=== PATIENT | male | born 1940 | race Asian ===

== ENCOUNTER → 2024-01-27 09:50 | Outpatient (REF) | payer OTHER, SELFPAY | LOC: RAD 09:50 | PROVIDERS: ATTENDING PHYSICIAN Internal Medicine | DX: R74.01 Elevation of levels of liver transaminase levels (principal) | CPT/HCPCS: 76700 ==

== ENCOUNTER → 2024-03-29 06:30 | Day surgery (SDC) | payer OTHER, SELFPAY ==
[2024-03-29 10:40] LABS: Glucose - Point of Care 160 mg/dl (70-99)
== END ==
LOC: GI 06:30
PROVIDERS: ATTENDING PHYSICIAN Internal Medicine Gastroenterology
DX: D50.9 Iron deficiency anemia, unspecified (principal); R19.5 Other fecal abnormalities; K64.8 Other hemorrhoids; Q43.8 Other specified congenital malformations of intestine; D49.0 Neoplasm of unspecified behavior of digestive system; D12.2 Benign neoplasm of ascending colon; D12.3 Benign neoplasm of transverse colon; K22.2 Esophageal obstruction; K44.9 Diaphragmatic hernia without obstruction or gangrene; K29.50 Unspecified chronic gastritis without bleeding
CPT/HCPCS: 45385; 45380; 43239; 88305; 82962; 88342

== ENCOUNTER 2024-04-07 19:35 | Inpatient (IN) | payer OTHER, SELFPAY ==
[2024-04-07] VITALS (34 sets, daily range): BP systolic 95–140; BP diastolic 49–66; BMI 20.5; BMI 20.9
[2024-04-07 12:54] LABS: % Basophils 0.6 % (0-2); % Eosinophils 1.5 % (0-6); % Immature Granulocytes 0.4 % (0-0.5); % Lymphocytes 24.5 % (20.5-51.1); % Monocytes 7.9 % (1.7-9.3); % Neutrophils 65.1 % (42.2-75.2); Absolute Eosinophils 0.1 10^3/uL (0-0.7); Absolute Lymphocytes 1.3 10^3/uL (1.2-3.4); Absolute Monocytes 0.4 10^3/uL (0.1-0.6); Absolute Neutrophils 3.5 10^3/uL (1.4-6.5); Hematocrit 22.1 % (39.0-52.0); Hemoglobin 7.5 g/dL (13.0-18.0); Mean Corp Hgb Conc. 33.9 g/dL (33.0-37.0); Mean Corpuscular Hgb 28.8 pg (27.0-31.0); Mean Platelet Volume 8.4 fL (7.4-10.4); Nucleated Red Blood Cells % 0 % (-); Platelet Count 312 10^3/uL (130-400); Red Cell Dist. Width 14.5 % (11.5-14.5); White Blood Cell Count 5.4 10^3/uL (4.8-10.8)
[2024-04-07 13:06] LABS: ALT (SGPT) 20 U/L (0-50); AST (SGOT) 32 U/L (17-59); Albumin 3.7 g/dl (3.5-5.0); Alkaline Phosphatase 78 U/L (38-126); Blood Urea Nitrogen 36 mg/dl (9-20); Calcium 9.2 mg/dl (8.4-10.2); Carbon Dioxide 25 mmol/L (22-30); Chloride 105 mmol/L (98-107); Glucose 166 mg/dl (70-99); Potassium 4.7 mmol/L (3.5-5.1); Sodium 137 mmol/L (135-145); Total Bilirubin 0.3 mg/dl (0.2-1.3); Total Protein 6.2 g/dl (6.3-8.2); eGFR 34.14
--- NOTE | 2024-04-07 15:38 | ED.GENMED ---
History of Present Illness
General
Chief Complaint: Rectal Bleeding
Source: patient and family (Daughter)
Exam Limitations: none
Time Seen by Provider: 04/07/24 14:19
Nursing documentation reviewed up to this point in time: agreed with
Travel History
Have you had any contact with someone who has COVID-19?: No
Do you have any symptoms of coronavirus? Fever > 100 degrees, chills, cough, shortness of breath, sore throat, loss of taste or smell, muscle aches, or headache?: No
History of Present Illness
History of Present Illness:
The patient is a pleasant 83-year-old man who has a history of A-fib and is on Eliquis. Patient recently underwent a colonoscopy 6 days ago. Patient reports that at that time, a polyp was removed and a biopsy was done. Patient reports that he has
had ongoing rectal bleeding and bright red bowel movements since the procedure. Patient reports he started Eliquis 3 days ago. His family reports that they were monitoring the bleeding, however, starting yesterday, he complained of weakness and
shortness of breath. Patient denies abdominal pain, nausea and vomiting.
Past History
Past History
ED Past Medical History: Arrthythmia (Atrial fibrillation), CVA, GERD, HTN, NIDDM, Renal failure, Psychiatric (Depression) and Other (Gout)
ED Past Surgical History: Urological (Prostatectomy) and Other (jaw surgery)
Social History
Tobacco: Former smoker
Alcohol: Occasional
Drug: None
Personal:
Living: with family
Employment: Retired
Family History
Family History: Other
Review of Systems
Review of Systems
Allergies reviewed?: Yes
All Other Systems: ROS reviewed and negative except as documented in HPI and ROS
Constitutional: Reports fatigue
EENT: Reports no symptoms
Respiratory: Reports trouble breathing
Cardiac: Reports no symptoms
ABD/GI: Reports bloody stools
: Reports no symptoms
Musculoskeletal: Reports no symptoms
Skin: Reports no symptoms
Neurological: Reports no symptoms
Endocrine: Reports no symptoms
Hematologic/Lymphatic: Reports no symptoms
Psychiatric: Reports no symptoms
Phy Exam
Physical Exam
Physical Exam:
Physical Exam
General: no apparent distress, not acutely ill. Well appearing
Neck: supple. no meningeal signs. normal psoterior pharynx
Heart: s1/s2 regular rate and rhythm, no murmur. equal radial pulses.
Lungs: no acute respiratory distress. clear bilaterally
Abdomen: normal bowel sounds. not tender. no CVAT. On rectal exam, dark red blood on my gloved finger but no oozing nor blood clots
Neuro: alert and oriented. no focal neurological deficits
Skin: no rash
Psychiatric: well kept. interactive and cooperative
Extremities: no edema. no calf tenderness. negative homans. good distal pulses
Course
Orders/Labs/Results
Orders:
Orders
04/07/24 12:43
Type+Screen Urgent
Complete Blood Count/With Diff Urgent
Comprehensive Metabolic Panel Urgent
04/07/24 15:38
* Blood Bank Products Urgent
'erlinda Orders: Meredith
Blood Bank Products: *Packed RBC Leuko(PRBC's)
Quantity: 2
Transfuse Today: Yes
Is product needed for scheduled surgery?: No
Reason: Bleeding
Patient will require pre-treatment for transfusion:: No
04/07/24 15:39
IV Insert/Care/Rem.- Treatment PRN
0.9% Sodium Chloride 500 ml [Nss] 500 ml IV BOLUS
04/07/24 16:08
Electrocardiogram (*1) Urgent
Reason for Study: Shortness of Breath
EKG- Treatment ONCE
Abnormal Lab Results
04/07/24
12:43
RBC 2.60 L 10^6/uL
(4.70-6.10)
Hgb 7.5 L g/dL
(13.0-18.0)
Hct 22.1 L %
(39.0-52.0)
BUN 36 H mg/dl
(9-20)
Creatinine 1.9 H mg/dL
(0.7-1.3)
Glucose 166 H mg/dl
(70-99)
Total Protein 6.2 L g/dl
(6.3-8.2)
Crossmatch IS Only See Detail
04/07/24 12:43
04/07/24 12:43
Vital Signs
Initial and Last Documented VS:
Initial Vital Signs
Temp Pulse Resp BP Pulse Ox
98.1 F 67 18 113/49 100
04/07/24 12:34 04/07/24 12:34 04/07/24 12:34 04/07/24 12:34 04/07/24 12:34
Last Documented Vital Signs
Temp Pulse Resp BP Pulse Ox
98.1 F 64 20 117/58 100
04/07/24 16:18 04/07/24 16:18 04/07/24 16:18 04/07/24 16:18 04/07/24 16:18
MDM/Problems Addressed
Differential Diagnosis Includes:
GI bleed, symptomatic anemia, acute diverticular bleed
MDM/Problems Addressed:
Patient presents with acute shortness of breath and fatigue
Chronic conditions affecting care:
Given patient has a history of A-fib he is on Eliquis which could increase the risk of postop bleeding
Chronic conditions affecting care: Arrhythmia
*Pulse Oximetry
Patient hypoxic: no
*EKG
Interpreted by ED Provider?: Yes (Pending upon admission. security monitor shows a normal sinus rhythm)
*Trumpet Player Interpretation
Rate: normal
Interpretation: normal
Rhythm: sinus
*Critical Care Note
Total Time (30-74mins, 75-104mins- exclusive of procedures): 40 minutes of critical ca
comment:
40 minutes of critical care given to patient including frequent reassessments of his heart rate, blood pressure, discussing a blood transfusion, reviewing his blood work and counseling his daughter and he.
Data Reviewed
Review of Other/Old Records Reveals: Labs (Prior hemoglobin from 2022) and Discharge Summary (Discharge summary reviewed from 06/2023 when patient was admitted for TIA)
Source: patient and family
Patient Management
Discussion with other providers: Hospitalist and Other (GI doctor, made aware of patient's admission and condition)
Escalation/DeEscalation of care consider admission/obs:
Patient will be admitted for rectal bleed and symptomatic anemia. Blood transfusion ordered after patient gave written consent and understands risks and benefits of blood transfusion
ED Attending Note
-
Portions of this chart may have been created with voice recognition software.� Occasional wrong word or��sound alike� substitutions may have occurred due to the inherent limitations of voice recognition software.
Discharge Plan
Departure
Patient Disposition: Admit
Date of Disposition: 04/07/24
Time of Disposition: 15:23
Admit to: Med/Surg and Telemetry
Presentation/result/management discussed w/ accepting MD/DO: Hospitalist
Condition: Good
Covid-19: Not Applicable
Discharge Problem:
Symptomatic anemia, Acute rectal bleed
Prescriptions:
No Action
allopurinol 100 mg Tablet
100 mg PO DAILY
metformin 1,000 mg Tablet
1,000 mg PO QPM
aspirin 81 mg Tablet,Delayed Release (Dr/Ec)
81 mg PO DAILY Qty: 30 1RF
amlodipine 10 mg Tablet
10 mg PO QPM
losartan 50 mg Tablet
75 mg PO DAILY
Eliquis 5 mg Tablet
5 mg PO BID
Unknown Eye Drops
1 drp BOTH EYES DAILYPRN PRN (Reason: dry eyes)
Patient Comments:
04/07/2024, OTC eye drops per pt.
Referrals:
Jaycee Deng MD [Family Provider] -
Interventions
Interventions:
*Risk Screen - Suicide Last Done: 04/07/24 14:33
*General Assessment Last Done: 04/07/24 14:33
*Neglect/Abuse Screening Last Done: 04/07/24 14:33
ED- Fall Risk Assessment Last Done: 04/07/24 14:33
*ED COVID-19 Vaccine History Last Done: 04/07/24 12:34
RM-Thkglq-Gzkkwdpkec Assessment Last Done: 04/07/24 14:33
ED- Cardiac Assessment Last Done: 04/07/24 14:33
ED- Pulmonary Assessment Last Done: 04/07/24 14:33
Discharge Date and Time
Print Language: GIBRALTARIAN
[2024-04-07] MEDS: NSS 500 IV (18:13)
--- NOTE | 2024-04-07 19:00 | HPS.HSE ---
Family Physician
-
Family Physician: Jaycee Deng
Chief Complaint
-
Rectal bleeding
History of Present Illness
83-year-old man with a history of A-fib and is on Eliquis. He underwent a colonoscopy 6 days ago, a polyp was removed and a biopsy was done. He has had ongoing rectal bleeding and bright red bowel movements since the procedure. He re-started
Eliquis 3 days ago. Starting yesterday, he complained of weakness and shortness of breath. He denies abdominal pain, nausea and vomiting. At the time of my admit he was comfortable, receiving 2 units of blood. He has had a 40 Lb unwanted weight
loss this year. He sometimes has pedal edema, but does not have this now.
Medical History
Past Medical History
Past Medical History: Reports Other
Additional Past Medical History:
Atrial fibrillation, on eliquis
CVA,
GERD,
essential HTN,
NIDDM,
Renal failure,
Depression
Gout
Prostatectomy
jaw surgery
TIA
Past Surgical History: Reports Other
Additional Past Surgical History:
See above
Social History
Tobacco: Non-smoker
Alcohol: None
Personal:
Living: With Family
Family History
Family History: Not pertinent
Allergies / Home Medications
Allergies reflects when Allergies were last updated in [employer].
Home Medications with original date entered in [employer]
Allergy/Medication List:
Allergies
Allergy/AdvReac Type Severity Reaction Status Date / Time
No Known Allergies Allergy Verified 04/07/24 12:38
Home Medications
allopurinol 100 mg tablet 100 mg PO DAILY Gout 03/15/23
metformin 1,000 mg tablet 1,000 mg PO QPM Diabetes 03/15/23
aspirin 81 mg tablet,delayed release 81 mg PO DAILY #30 tabs 09/26/23
amlodipine 10 mg tablet 10 mg PO QPM 04/02/24
Unknown Eye Drops 1 drp BOTH EYES DAILYPRN PRN dry eyes 04/07/24
apixaban 5 mg tablet (Eliquis) 5 mg PO BID 04/07/24
losartan 50 mg tablet 75 mg PO DAILY 04/07/24
Review of Systems
-
History Source: Patient
A 12 point ROS was completed and negative except as noted: Yes
Respiratory: Reports Other (shortness of breath)
Physical Exam
Vital Signs
Vital Signs
Temp Pulse Resp BP Pulse Ox
98.2 F 72 16 140/63 100
04/07/24 18:53 04/07/24 18:53 04/07/24 18:53 04/07/24 18:53 04/07/24 18:38
Physical Exam
General: Well Developed, No Apparent Distress, Comfortable, Conversant and Appears Chronically Ill
HEENT: No Ptosis, Nose Appears Normal and Ears Appear Normal
Respiratory: Clear
Cardiac: S1/S2 and Regular Rhythm
GI: Soft, Non Tender and Non Distended
Musculoskeletal: No Clubbing, No Cyanosis and No Edema
Skin: Warm and Dry; No Rash or Jaundice
Neuro: Awake, Alert, Oriented, AO x 3 and No Motor Deficits
Psych: Calm
Laboratory Results
-
04/07/24 12:43
04/07/24 12:43
Laboratory Results
Total Bilirubin 0.3 mg/dl (0.2-1.3) 04/07/24 12:43
AST 32 U/L (17-59) 04/07/24 12:43
ALT 20 U/L (0-50) 04/07/24 12:43
Alkaline Phosphatase 78 U/L (38-126) 04/07/24 12:43
Data Reviewed
-
Lab Data: Labs Reviewed by me
Impression/Plan
-
IMPRESSION:
83 man with rectal bleeding after a colonoscopy. On eliquis for afib/CVA.
PLAN:
1. Anemia from acute blood loss anemia, HH was 11.8/35.6, now 7.5/22.1
2 units of blood - already ordered
Hold eliquis tonight
Gi consult
2. Shortness of breath - a chronic process exacerbated by acute anemia
Re-eval after blood is received.
3. 40 Lb unwanted weight loss - has had outpatient workup
Continue outpatient workup.
4. NIDDM, on metformin
Hold metformin for now (because of renal function)
Supplemental insulin as needed
5. Acute renal failure, BUN/Creat was 20/1.3; now 36/1.9
IV saline
Recheck in am
6. H/O CVA
Hold eliquis for now, given active bleeding
Re-start as soon as bleeding stops
Code: DNR (confirmed with daughter at bedside)
VCD for DVTp
[2024-04-07 22:08] LABS: Hematocrit 30.4 % (39.0-52.0)
[2024-04-07 22:10] LABS: Hemoglobin 10.5 g/dL (13.0-18.0)
[2024-04-07] MEDS: PROTONIX 40 MG PO (23:00)
[2024-04-07] MEDS: NSS 1000 IV (23:01)
[2024-04-08 03:00] VITALS: BP 106/60; BP 124/59; BP 124/61; PULSE 60; PULSE 65; PULSE 70
[2024-04-08 06:32] LABS: Hematocrit 29.4 % (39.0-52.0); Mean Corpuscular Hgb 28.8 pg (27.0-31.0); Mean Corpuscular Volume 84.7 fL (80.0-94.0); Mean Platelet Volume 8.4 fL (7.4-10.4); Platelet Count 288 10^3/uL (130-400); Red Blood Cell Count 3.47 10^6/uL (4.70-6.10); Red Cell Dist. Width 14.6 % (11.5-14.5); White Blood Cell Count 5.7 10^3/uL (4.8-10.8)
[2024-04-08 07:10] LABS: Blood Urea Nitrogen 28 mg/dl (9-20); Calcium 9.2 mg/dl (8.4-10.2); Carbon Dioxide 25 mmol/L (22-30); Chloride 109 mmol/L (98-107); Estimated Creatinine Clearance 30 ml/min; Glucose 114 mg/dl (70-99); Potassium 4.7 mmol/L (3.5-5.1); Sodium 141 mmol/L (135-145); eGFR 41.96
[2024-04-08 07:20] VITALS: BP 100/54; BP 126/59; BP 89/56; PULSE 58; PULSE 63; PULSE 71
[2024-04-08] MEDS: COZAAR 75 MG PO (08:12)
[2024-04-08] MEDS: ZYLOPRIM 100 MG PO (08:13)
[2024-04-08] MEDS: PROTONIX 40 MG PO ×2 (08:13→20:11)
[2024-04-08] MEDS: NSS 1000 IV (08:17)
[2024-04-08 11:14] VITALS: BP 108/56; BP 121/59; BP 125/62; PULSE 58; PULSE 63; PULSE 75
--- NOTE | 2024-04-08 12:56 | W.PN.HOSP.TC ---
Today's Communication/Plan
-
await furthe GI recommendation
CL/stop IVF
hold losartan
f/u Hbg and renal function
Assessment / Plan
Assessment / Plan
1. Lower GI bleed
Acute blood loss anemia
S/p Polypectomy/C-scope on 03/29
-Hbg 7.5 at admit, lower than last known baseline of 11-12 in Sep 15
-came in with bright red blood in stool
-got two units of PRBC in ER
-Hbg ~ 10 today, continue monitor
-Hold eliquis for now.
-on CL diet, stop IVF
-GI involved for further eval
2. Shortness of breath
-Exertional symptoms mainly
-Check CXR
-Probnp/echo to r/o valvular disease
3. Weight loss
- decreased apatite
-Getting outpatient workup, no clear reason
4. NIDDM
-Metformin to be held due to worsening renal function.
-maintain on ISS
5. NICK on CKDIIIB
-Baseline creatinine 1.31.4 in September 15, creatinine of 1.9 at admit
-Hold losartan/metformin
-Got IVF and improving, monitor.
6. H/O CVA
-Hold eliquis for now, given active bleeding
-Re-start as soon as bleeding stops
Code: DNR (confirmed with daughter at bedside)
VCD for DVTp
Anticipated Discharge: 24 - 48 hours
Subjective/Interval History
-
Date of Service: April 08, 2024
Still have some bright red blood in stool
Denies palpitations or dizziness
No other acute problems overnight
Objective Data
-
Labs:
Laboratory Results
04/08/24
06:15
WBC 5.7
Hgb 10.0 L
Hct 29.4 L
Plt Count 288
Sodium 141
Potassium 4.7
Chloride 109 H
Carbon Dioxide 25
BUN 28 H
Creatinine 1.6 H
Glucose 114 H
Calcium 9.2
Vital Signs:
Vital Signs
Temp Pulse Resp BP Pulse Ox
97.6 F 58 17 125/62 98
04/08/24 11:14 04/08/24 11:14 04/08/24 11:14 04/08/24 11:14 04/08/24 11:14
I&O
04/07/24 04/08/24 04/09/24
06:59 06:59 06:59
Intake Total 500 / 500 900 / 900
Output Total 350 / 350
Balance 500 / 500 550 / 550
Review of Systems
-
Respiratory: Reports No Symptoms
Cardiac: Reports No Symptoms
Abdomen/GI: Reports Bloody Stools; Denies Abdominal Pain, Nausea or Vomiting
Physical Exam
-
General: No Apparent Distress and Comfortable
HEENT: Negative Oxygen
Respiratory: Clear to Auscultation
Cardiac: Regular Rhythm and S1/S2; Negative Murmur or Rub
GI: Soft, Nontender, Nondistended and Normal Bowel Sounds
Musculoskeletal: No Edema
Neuro: Awake, Alert, Oriented, No Motor Deficits and Nonfocal/Grossly Intact
Psych: Calm
[2024-04-08 13:13] LABS: NT-proBNP 135 pg/ml
[2024-04-08 15:35] VITALS: BP 118/51; BP 121/62; BP 134/58; PULSE 60; PULSE 62; PULSE 74
[2024-04-08] MEDS: NORVASC 10 MG PO (17:02)
[2024-04-08 19:30] VITALS: BP 134/64; BP 135/60; BP 137/62; PULSE 63; PULSE 64; PULSE 67
--- NOTE | 2024-04-08 19:56 | CON.GI ---
Addendum entered and electronically signed by Joseph Watts MD 04/11/24 13:02:
Billing :
GI bleed is a complication of the procedure with polypectomy.
Original Note:
Consultation
-
Date/Time Consultation Requested: 04/07/2024
Date/Time Consultation Performed: 04/08/2024
Requesting Provider: hospitalist
Performing Provider: Sukh MEJIA
Reason for Consultation: rectal bleeding
Medical History
Chief Complaint / HPI
Chief Complaint: rectal bleeding
History of Present Illness:
83 y/o male with hx of afib on eliquis,DM, CVA, HTN admitted rectal bleeding for 9 days . patient underwent EGD/ colonoscopy with az 03/29/2024 for KOFI. details- below
Colonoscopy: 03/29/2024
Impression: - One 10 mm polyp in the ascending colon, removed with
a cold snare. Resected and retrieved. Clips were
placed for hemostasis. path - TA
- Rule out malignancy, polypoid lesion in the proximal
transverse colon/ distal ascending colon. Biopsied.
Tattooed distally. path- TA
- A tattoo was seen in the descending colon. The
tattoo site appeared abnormal. prominent fold vs
residual polyp . Biopsied.path - sessile serrate lesion
- Internal hemorrhoids.
as per daughter patient has been having mild rectal bleeding since next day after colonoscopy but since its not significant amount he restarted eliquis in 48 hours and continued to take till yesterday. Amount of bleeding was more yesterday so he was
brought into the hospital. Denies any abdominal pain/ nausea/ vomiting .
had a small amount of bleeding this am . nothing overnight. received 2 units PRBC since admission
Past Medical History
Past Medical History: Other (Atrial fibrillation, on eliquis CVA, GERD, essential HTN, NIDDM, Renal failure, Depression Gout Prostatectomy jaw surgery TIA)
Social History
Alcohol: None
Allergies / Home Medications
Allergy/AdvReac Type Severity Reaction Status Date / Time
No Known Allergies Allergy Verified 04/07/24 12:38
�Medication �Instructions �Recorded
allopurinol 100 mg tablet 100 mg PO DAILY Gout 03/15/23
metformin 1,000 mg tablet 1,000 mg PO QPM Diabetes 03/15/23
amlodipine 10 mg tablet 10 mg PO QPM Blood Pressure 04/02/24
Unknown Eye Drops 1 drp BOTH EYES DAILYPRN PRN dry 04/07/24
eyes
apixaban 5 mg tablet (Eliquis) 5 mg PO BID Blood Clot 04/07/24
Prevention/Tx
losartan 50 mg tablet 75 mg PO DAILY Blood Pressure 04/07/24
aspirin 81 mg tablet,delayed 81 mg PO DAILY Blood Clot 04/08/24
release Prevention/Tx
Review of Systems
-
All other systems: A 12 pt ROS was Negative except as stated above in HPI
Vital Signs
Temp Pulse Resp BP Pulse Ox
97.9 F 64 20 135/60 100
04/08/24 19:30 04/08/24 19:30 04/08/24 19:30 04/08/24 19:30 04/08/24 19:30
Physical Exam
Exam
General: Well Developed and No Apparent Distress
Respiratory: Clear
Cardiac: S1/S2
GI: Soft, Non Tender, Non Distended and Normal Bowel Sounds
Neuro: AO x 3
Results
WBC 5.7 10^3/uL (4.8-10.8) 04/08/24 06:15
Hgb 10.0 g/dL (13.0-18.0) L 04/08/24 06:15
Hct 29.4 % (39.0-52.0) L 04/08/24 06:15
MCV 84.7 fL (80.0-94.0) 04/08/24 06:15
Plt Count 288 10^3/uL (130-400) 04/08/24 06:15
Absolute Neuts (auto) 3.5 10^3/uL (1.4-6.5) 04/07/24 12:43
Sodium 141 mmol/L (135-145) 04/08/24 06:15
Potassium 4.7 mmol/L (3.5-5.1) 04/08/24 06:15
Chloride 109 mmol/L (98-107) H 04/08/24 06:15
Carbon Dioxide 25 mmol/L (22-30) 04/08/24 06:15
BUN 28 mg/dl (9-20) H 04/08/24 06:15
Creatinine 1.6 mg/dL (0.7-1.3) H 04/08/24 06:15
Calcium 9.2 mg/dl (8.4-10.2) 04/08/24 06:15
Total Bilirubin 0.3 mg/dl (0.2-1.3) 04/07/24 12:43
AST 32 U/L (17-59) 04/07/24 12:43
ALT 20 U/L (0-50) 04/07/24 12:43
Alkaline Phosphatase 78 U/L (38-126) 04/07/24 12:43
Diagnostic Image Results:
Prior GI Procedures:
EGD: 03/29/2024
Impression: - Medium-sized hiatal hernia.
- Widely patent and non-obstructing Schatzki ring.
- Gastritis. Biopsied.
- Normal examined duodenum.
Colonoscopy: 03/29/2024
Impression: - One 10 mm polyp in the ascending colon, removed with
a cold snare. Resected and retrieved. Clips were
placed for hemostasis. path - TA
- Rule out malignancy, polypoid lesion in the proximal
transverse colon/ distal ascending colon. Biopsied.
Tattooed distally. path- TA
- A tattoo was seen in the descending colon. The
tattoo site appeared abnormal. prominent fold vs
residual polyp . Biopsied.path - sessile serrate lesion
- Internal hemorrhoids.
Assessment / Plan
-
83 y/o male who underwent EGD/colonoscopy 03/29/2024 admitted with rectal bleeding for 9 days. Patient resumed eliquis despite of rectal bleeding in 48 hours after the procedure ( recent hx of CVA ) and noticed increased bleeding yesterday .
received 2 untis PRBC since admission .
-- rectal bleeding - post polypectomy bleeding exacerbated by eliquis
-- afib on eliquis
-- CVA
plan
continue monitor Hb
clear liquid diet
since patient had a small BM this am and no overnight BMs and Hb after transfusion was appropriate will continue to monitor until eliquis washout
if he continues to have significant bleeding / drop in Hb will repeat colonoscopy
patient eventually requires colonoscopy with EMR of polypoidal lesion ( proximal transverse/ descending colon ) with in the future
Total Time Spent with Patient (in minutes): 55
-
-
Thank you for consultation and allowing me to participate in the patient's care. Please call the computer education professor GI physician during the after hours with any questions or concerns.
[2024-04-08 23:02] VITALS: BP 116/61; BP 125/63; BP 128/59; PULSE 63; PULSE 69; PULSE 83
[2024-04-09] VITALS (7 sets, daily range): BP systolic 106–129; BP diastolic 52–65; PULSE 70–81; BMI 20.9
[2024-04-09 05:29] LABS: Hematocrit 28.6 % (39.0-52.0); Hemoglobin 9.6 g/dL (13.0-18.0); Mean Corp Hgb Conc. 33.6 g/dL (33.0-37.0); Mean Corpuscular Hgb 28.5 pg (27.0-31.0); Mean Corpuscular Volume 84.9 fL (80.0-94.0); Mean Platelet Volume 8.5 fL (7.4-10.4); Platelet Count 297 10^3/uL (130-400); Red Blood Cell Count 3.37 10^6/uL (4.70-6.10); Red Cell Dist. Width 14.7 % (11.5-14.5); White Blood Cell Count 6.3 10^3/uL (4.8-10.8)
[2024-04-09 06:28] LABS: Blood Urea Nitrogen 22 mg/dl (9-20); Calcium 9.5 mg/dl (8.4-10.2); Carbon Dioxide 25 mmol/L (22-30); Chloride 109 mmol/L (98-107); Estimated Creatinine Clearance 30 ml/min; Glucose 112 mg/dl (70-99); Potassium 5.1 mmol/L (3.5-5.1); Sodium 139 mmol/L (135-145); eGFR 41.96
[2024-04-09] MEDS: ZYLOPRIM 100 MG PO (08:45)
[2024-04-09] MEDS: PROTONIX 40 MG PO ×2 (08:45→20:03)
--- NOTE | 2024-04-09 13:15 | W.PN.HOSP.TC ---
Today's Communication/Plan
-
await GI recs
Assessment / Plan
Assessment / Plan
Assessment:
Lower GI bleed
Acute, symptomatic, blood loss anemia
S/p Polypectomy/C-scope on 03/29
- s/p 2 units PRBCs, Hb 9.6
- on clears
- GI following
Shortness of breath
- Exertional symptoms mainly; likely related to anemia
- CXR: Findings suspicious for COPD. No radiographic demonstrable superimposed acute cardiopulmonary process.
- Echo: normal
Weight loss
- decreased apatite
- getting outpatient workup, no clear reason
NIDDM
- Metformin to be held due to worsening renal function.
- maintain on ISS
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
- Baseline creatinine 1.31.4 in September 15, creatinine of 1.9 at admit
- Hold losartan/metformin
- Got IVF and improving, monitor.
H/O CVA
- Hold Eliquis for now, given active bleeding
- Re-start as soon as bleeding stops
Code: DNR (confirmed with daughter at bedside)
DVT ppx: SCDs
Anticipated Discharge: 24 - 48 hours
Subjective/Interval History
-
Date of Service: April 09, 2024
last bloody BM was yesterday AM
denies any BM or blood in last 24 hours, feels well today
Objective Data
-
Labs:
Laboratory Results
04/09/24
05:13
WBC 6.3
Hgb 9.6 L
Hct 28.6 L
Plt Count 297
Sodium 139
Potassium 5.1
Chloride 109 H
Carbon Dioxide 25
BUN 22 H
Creatinine 1.6 H
Glucose 112 H
Calcium 9.5
Vital Signs:
Vital Signs
Temp Pulse Resp BP Pulse Ox
97.6 F 60 18 127/65 99
04/09/24 11:44 04/09/24 11:44 04/09/24 11:44 04/09/24 11:44 04/09/24 11:44
I&O
04/08/24 04/09/24 04/10/24
06:59 06:59 06:59
Intake Total 500 / 500 2109 / 2109
Output Total 2149 / 2149
Balance 500 / 500 -40 / -40
Physical Exam
-
General: No Apparent Distress
HEENT: Normocephalic and Atraumatic
Respiratory: Negative Wheezes
Cardiac: Regular Rhythm and S1/S2
GI: Soft and Nontender
Neuro: AO x 3
Hematologic / Lymphatic: No Lymphadenopathy
Psych: Calm
Data Reviewed
-
Total Time Spent with Patient (in minutes): 42
Labs: Labs Reviewed by me
--- NOTE | 2024-04-09 13:50 | PN.CDI ---
CDI
- -
CDI:
Physician Documentation Request
Admit Date: 04/07/24 19:35
Dear Doctor Cheyenne,
Patient admitted for GI bleed following colonoscopy.
ER Physician Documentation: 'Patient reports that at that time, a polyp was removed and a biopsy was done. Patient reports that he has had ongoing rectal bleeding and bright red bowel movements since the procedure. Patient reports he started
Eliquis 3 days ago...he is on Eliquis which could increase the risk of postop bleeding'
04/09 Hospitalist PN: 'Lower GI bleed, Acute, symptomatic, blood loss anemia...Hold Eliquis for now, given active bleeding'
Please clarify the relationship between these conditions:
Yes, GI bleed is related to/exacerbated by Eliquis.
No, GI bleed is not related to/exacerbated by Eliquis
Unable to determine
Use of terms such as suspected, likely, concern for, or probable (associated with a specific diagnosis that is being evaluated, monitored, or treated as if it exists) are acceptable and can be coded in the inpatient setting, when documented at the
time of discharge.
Thank you,
Demi Miller RN, BSN
CDI Specialist
Available via [place] text
Please use your independent medical judgment in providing your response.
--- NOTE | 2024-04-09 13:55 | PN.CDI ---
CDI
- -
CDI:
Physician Documentation Request
Admit Date: 04/07/24 19:35
Dear Doctor Cheyenne,
Patient admitted for GI bleed.
ER Physician Documentation: 'Patient recently underwent a colonoscopy 6 days ago. Patient reports that at that time, a polyp was removed and a biopsy was done. Patient reports that he has had ongoing rectal bleeding and bright red bowel movements
since the procedure.'
04/09 Hospitalist PN: 'Lower GI bleed
Acute, symptomatic, blood loss anemia
S/p Polypectomy/C-scope on 03/29
- s/p 2 units PRBCs, Hb 9.6'
Please clarify the following:
GI bleed is a complication of the procedure
GI bleed is unexpected but is NOT a complication of the procedure
GI bleed is an expected occurrence and is not a complication of procedure
GI bleed is inherent to/unavoidable during the procedure and is not a complication
Other
Use of terms such as suspected, likely, concern for, or probable (associated with a specific diagnosis that is being evaluated, monitored, or treated as if it exists) are acceptable and can be coded in the inpatient setting, when documented at the
time of discharge.
Thank you,
Demi Miller RN, BSN
CDI Specialist
Available via [place] text
Please use your independent medical judgment in providing your response.
--- NOTE | 2024-04-09 16:11 | W.PN.GI.CBS2 ---
Today's Communication / Plan
-
Full liquid diet
Monitor H&H
Assessment / Plan
-
83 y/o male who underwent EGD/colonoscopy 03/29/2024 admitted with rectal bleeding for 9 days. Patient resumed eliquis despite of rectal bleeding in 48 hours after the procedure ( recent hx of CVA ) and noticed increased bleeding yesterday .
received 2 untis PRBC since admission .
-- rectal bleeding - post polypectomy bleeding exacerbated by eliquis
-- afib on eliquis
-- CVA
plan
Hemoglobin relatively stable. No further bleeding. Will advance to full liquid diet and then to low residual diet
Will hold off on colonoscopy for now
If no further bleeding for the next 24 to 48 hours okay to restart Eliquis considering benefit versus risk.
patient eventually requires colonoscopy with EMR of polypoidal lesion ( proximal transverse/ descending colon ) with in the future
Total Time Spent with Patient (in minutes): 35
Subjective
Subjective
Date of Service: April 09, 2024
No further bleeding since yesterday morning. Tolerating clear liquid diet
Objective
Data Reviewed
Laboratory Data:
Laboratory Results
04/09/24 05:13
04/09/24 05:13
Laboratory Results
Total Bilirubin 0.3 mg/dl (0.2-1.3) 04/07/24 12:43
AST 32 U/L (17-59) 04/07/24 12:43
ALT 20 U/L (0-50) 04/07/24 12:43
Alkaline Phosphatase 78 U/L (38-126) 04/07/24 12:43
Vital Signs and I&O:
Vital Signs
Temp Pulse Resp BP Pulse Ox
98.1 F 62 16 126/59 99
04/09/24 15:00 04/09/24 15:00 04/09/24 15:00 04/09/24 15:00 04/09/24 15:00
I&O
04/08/24 04/09/24 04/10/24
06:59 06:59 06:59
Intake Total 500 / 500 2109
Output Total 2149
Balance 500 / 500 -40 / -40
Physical Exam
Physical Exam
GI: Soft, Non Distended and Non Tender
--- NOTE | 2024-04-09 17:07 | CM ---
Alert awake oriented patient who lives with his Maritza who live in a [address] and older condo with 1 step to enter and bed and bathroom on first floor. He is independent in driving and in all activities of daily living.He said he assists his .
He requested healthcare facility administrator list.The private pay healthcare facility administrator list was given. He was offered VN he declined need.Daughter will drive him home.
No VN hx / No SNF history
Pharmacy [facility]
PCP DR Deng
PLAN Home Declined VN
[2024-04-09] MEDS: NORVASC 10 MG PO (18:35)
[2024-04-10 03:00] VITALS: BP 105/56
[2024-04-10 05:36] LABS: Hematocrit 27.4 % (39.0-52.0); Hemoglobin 9.5 g/dL (13.0-18.0); Mean Corp Hgb Conc. 34.7 g/dL (33.0-37.0); Mean Corpuscular Hgb 28.8 pg (27.0-31.0); Mean Platelet Volume 8.3 fL (7.4-10.4); Platelet Count 307 10^3/uL (130-400); Red Cell Dist. Width 14.8 % (11.5-14.5); White Blood Cell Count 6.4 10^3/uL (4.8-10.8)
[2024-04-10 06:26] LABS: Blood Urea Nitrogen 18 mg/dl (9-20); Calcium 9.3 mg/dl (8.4-10.2); Carbon Dioxide 26 mmol/L (22-30); Chloride 108 mmol/L (98-107); Estimated Creatinine Clearance 26 ml/min; Glucose 109 mg/dl (70-99); Potassium 4.7 mmol/L (3.5-5.1); Sodium 141 mmol/L (135-145); eGFR 36.43
[2024-04-10] MEDS: PROTONIX 40 MG PO (07:09)
[2024-04-10] MEDS: ZYLOPRIM 100 MG PO (07:09)
[2024-04-10 07:38] VITALS: BP 119/64
--- NOTE | 2024-04-10 09:11 | W.PN.HOSP.TC ---
Addendum entered and electronically signed by Candice Quinn MD 04/10/24 13:38:
moderate protein calorie malnutrition of chronic illness
Original Note:
Today's Communication/Plan
-
dc to home today
Assessment / Plan
Assessment / Plan
Assessment:
Lower GI bleed exacerbated by Eliquis
Acute, symptomatic, blood loss anemia
S/p Polypectomy/C-scope on 03/29
- s/p 2 units PRBCs, Hb 9.5
- tolerating diet
- GI follow OP; needs EMR with Dr. Lyle
Shortness of breath
- Exertional symptoms mainly; likely related to anemia
- CXR: Findings suspicious for COPD. No radiographic demonstrable superimposed acute cardiopulmonary process.
- Echo: normal
Weight loss
- decreased appetite
- getting outpatient workup, no clear reason
NIDDM
- Metformin to be held due to worsening renal function.
- maintain on ISS
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
- Baseline creatinine 1.31.4 in September 15, creatinine of 1.9 at admit
- resume losartan/metformin at discharge
- Got IVF and improving, monitor.
H/O CVA
- resume Eliquis this evening
Code: DNR (confirmed with daughter at bedside)
DVT ppx: SCDs
More than 30 minutes spent in discharge including
Final examination of the patient
Summarizing hospital stay
Instructions for continuing care to all relevant caregivers
Preparation of discharge records, prescriptions, and referral forms
Total time spent (in minutes): 41
Anticipated Discharge: Today
Subjective/Interval History
-
Date of Service: April 10, 2024
Hb stable
no bleeding
tolerating diet
Objective Data
-
Labs:
Laboratory Results
04/10/24
05:14
WBC 6.4
Hgb 9.5 L
Hct 27.4 L
Plt Count 307
Sodium 141
Potassium 4.7
Chloride 108 H
Carbon Dioxide 26
BUN 18
Creatinine 1.8 H
Glucose 109 H
Calcium 9.3
Vital Signs:
Vital Signs
Temp Pulse Resp BP Pulse Ox
98.4 F 66 16 119/64 98
04/10/24 07:38 04/10/24 07:38 04/10/24 07:38 04/10/24 07:38 04/10/24 07:38
I&O
04/09/24 04/10/24 04/11/24
06:59 06:59 06:59
Intake Total 2109 / 0 193 / 193
Output Total 0 / 2150 200 / 200
Balance -40 / -40 1730 / 1730
Physical Exam
-
General: No Apparent Distress
HEENT: Normocephalic and Atraumatic
Respiratory: Negative Wheezes
Cardiac: Regular Rhythm and S1/S2
GI: Soft and Nontender
Musculoskeletal: No Edema
Neuro: AO x 3
Hematologic / Lymphatic: No Lymphadenopathy
Psych: Calm
Data Reviewed
-
Total Time Spent with Patient (in minutes): 41
Labs: Labs Reviewed by me
--- NOTE | 2024-04-10 09:15 | PN.CDI ---
CDI
- -
CDI:
Physician Documentation Request
Admit Date: 04/07/24 19:35
Dear Doctor Stefanie,
Patient admitted for GI bleed.
ER Physician Documentation: 'Patient recently underwent a colonoscopy 6 days ago. Patient reports that at that time, a polyp was removed and a biopsy was done. Patient reports that he has had ongoing rectal bleeding and bright red bowel movements
since the procedure.'
04/09 Hospitalist PN: 'Lower GI bleed
Acute, symptomatic, blood loss anemia
S/p Polypectomy/C-scope on 03/29
- s/p 2 units PRBCs, Hb 9.6'
Please clarify the following:
GI bleed is a complication of the procedure
GI bleed is unexpected but is NOT a complication of the procedure
GI bleed is an expected occurrence and is not a complication of procedure
GI bleed is inherent to/unavoidable during the procedure and is not a complication
Other
Use of terms such as suspected, likely, concern for, or probable (associated with a specific diagnosis that is being evaluated, monitored, or treated as if it exists) are acceptable and can be coded in the inpatient setting, when documented at the
time of discharge.
Thank you,
Demi Miller RN, BSN
CDI Specialist
Available via [place] text
Please use your independent medical judgment in providing your response.
--- NOTE | 2024-04-10 11:32 | W.DS.TRANS ---
DC Summary - [employer] Disabled
-
Discharge Instructions:
Discharge Diagnosis/Procedures Lower GI bleed, post-polyp removal
Diet Low Residue
Activity As tolerated
Bathing Restrictions None
Instructions:
Stand-Alone Forms:
Changes to Home Medications: No
Discharge Medications:
DC Medications w/original date entered in [employer]
allopurinol 100 mg tablet 100 mg PO DAILY Gout 03/15/23
metformin 1,000 mg tablet 1,000 mg PO QPM Diabetes 03/15/23
amlodipine 10 mg tablet 10 mg PO QPM Blood Pressure 04/02/24
Unknown Eye Drops 1 drp BOTH EYES DAILYPRN PRN dry eyes 04/07/24
apixaban 5 mg tablet (Eliquis) 5 mg PO BID Blood Clot Prevention/Tx 04/07/24
losartan 50 mg tablet 75 mg PO DAILY Blood Pressure 04/07/24
aspirin 81 mg tablet,delayed release 81 mg PO DAILY Blood Clot Prevention/Tx 04/08/24
Home Medication Changes
Pending Results: No
[2024-04-10 11:44] VITALS: BP 124/60
--- NOTE | 2024-04-10 13:06 | PN.CDI ---
CDI
- -
CDI:
Physician Documentation Request
Admit Date: 04/07/24 19:35
Dear Doctor Cheyenne,
Patient admitted for GI bleed.
04/09 Event Planner Assessment: 'During visit RD able to visulize protrusion of clavical, temporal wasting, Orbital area with dark circles and slightly sunken in, apparent ribs. With observed muscle and fat wasting and < 75% estimated needs >
1 month pt meets AND/ ASPEN criteria for moderate protein calorie malnutrition of chronic illness.'
Based on the above information and your assessment, which of the following most accurately represents the patient's nutritional status?
Moderate protein calorie malnutrition
Other
[place] Criteria ([facility] Hospitalist 2017)
2 or more criteria must be present for either
non severe or severe malnutrition
Note that the criteria differs related to the
presence of an acute or chronic illness
Acute Illness Chronic Illness
Energy Intake Non Severe: <75% for >7 days Non Severe: <75% for >1 month
Severe: <50% for >5 days Severe: <75% for >1 month
Weight Loss Non Severe: 1-2% over 1 week Non Severe: 5% over 1 month
5% over 1 month 7.5% over 3 months
7.5% over 3 months 10% over 6 months
1 year N/A 20% over 1 year
Severe: >2% over 1 week Severe: >5% over 1 month
>5% over 1 month >7.5% over 3 months
>7.5% over 3 months >10% over 6 months
1 year N/A >20% over 1 year
Body Fat Non Severe: Mild Decrease Non Severe: Mild Loss
Severe: Moderate Decrease Severe: Severe Loss
Muscle Mass Non Severe: Mild Decrease Non Severe: Mild Loss
Severe: Moderate Decrease Severe: Severe Loss
Fluid Accumulation Non Severe: Mild Accumulation Non Severe: Mild Accumulation
Severe: Moderate to severe Severe: Moderate to severe
accumulation accumulation
Reduced [place] Strength Non Severe: N/A Non Severe: N/A
Severe: Measurably reduced Severe: Measurably reduced
Additional criteria that can be used to Determine if Mild or Moderate Malnutrition (Merck Manual 2018)
Mild Moderate Severe
Albumin gm/dl <3.0 gm/dl <2.5 gm/dl <2.0 gm/dl
Pre Albumin mg/dl <15 gm/dl <10 mg/dl <5.0 mg/dl
BMI <18.5 <17 <16
Use of terms such as suspected, likely, concern for, or probable (associated with a specific diagnosis that is being evaluated, monitored, or treated as if it exists) are acceptable and can be coded in the inpatient setting, when documented at the
time of discharge.
Thank you,
Demi Miller RN, BSN
CDI Specialist
Available via [place] text
Please use your independent medical judgment in providing your response.
--- NOTE | 2024-04-10 13:38 | CM ---
MD entered order for discharge.
IMM reviewed pt agrees with dc.
Provided private pay rehab care assistant list to pt for his wifes care . Pts also in DH.
Daughter will drive him home.
PLAN Home Declined VN
== END 2024-04-10 11:56 | disposition home or self-care (01) | DRG 920 ==
LOC: 3 WEST ACU 19:35
PROVIDERS: Emergency Medicine; Hospitalist; ADMITTING PHYSICIAN Internal Medicine; ATTENDING PHYSICIAN Internal Medicine; CONSULT PHYSICIAN Internal Medicine Gastroenterology; EMERGENCY PHYSICIAN Emergency Medicine; FAMILY PHYSICIAN Internal Medicine
PROC: 30233N1 Transfusion of Nonautologous Red Blood Cells into Peripheral Vein, Percutaneous Approach (ICD-10-PCS; 2024-04-07)
DX: K91.840 Postprocedural hemorrhage of a digestive system organ or structure following a digestive system procedure (principal); D62 Acute posthemorrhagic anemia; N17.9 Acute kidney failure, unspecified; E44.0 Moderate protein-calorie malnutrition; D68.32 Hemorrhagic disorder due to extrinsic circulating anticoagulants; K62.5 Hemorrhage of anus and rectum; E11.22 Type 2 diabetes mellitus with diabetic chronic kidney disease; F32.A Depression, unspecified; Z66 Do not resuscitate; I12.9 Hypertensive chronic kidney disease with stage 1 through stage 4 chronic kidney disease, or unspecified chronic kidney disease; N18.31 Chronic kidney disease, stage 3a; Y83.8 Other surgical procedures as the cause of abnormal reaction of the patient, or of later complication, without mention of misadventure at the time of the procedure; I48.91 Unspecified atrial fibrillation; K21.9 Gastro-esophageal reflux disease without esophagitis; K44.9 Diaphragmatic hernia without obstruction or gangrene; K29.70 Gastritis, unspecified, without bleeding; K64.8 Other hemorrhoids; M10.9 Gout, unspecified; Z68.20 Body mass index [BMI] 20.0-20.9, adult; Z79.01 Long term (current) use of anticoagulants; Z79.82 Long term (current) use of aspirin; Z79.84 Long term (current) use of oral hypoglycemic drugs; Z79.899 Other long term (current) drug therapy; Z86.010 Personal history of colon polyps; Z87.891 Personal history of nicotine dependence; Z86.73 Personal history of transient ischemic attack (TIA), and cerebral infarction without residual deficits
CPT/HCPCS: 36430; 71046; 80048; 80053; 83880; 85014; 85018; 85025; 85027; 86850; 86900; 86901; 86920; 93005; 93306; 96360; 99291; P9016

== ENCOUNTER 2024-04-13 12:26 | Emergency (ER) | payer OTHER, SELFPAY ==
[2024-04-13 12:28] VITALS: BP 125/63
[2024-04-13 12:59] LABS: % Basophils 0.5 % (0-2); % Eosinophils 1.5 % (0-6); % Immature Granulocytes 0.3 % (0-0.5); % Neutrophils 65.7 % (42.2-75.2); Absolute Eosinophils 0.1 10^3/uL (0-0.7); Absolute Lymphocytes 1.7 10^3/uL (1.2-3.4); Absolute Monocytes 0.4 10^3/uL (0.1-0.6); Absolute Neutrophils 4.2 10^3/uL (1.4-6.5); Hematocrit 28.3 % (39.0-52.0); Hemoglobin 9.4 g/dL (13.0-18.0); Mean Corp Hgb Conc. 33.2 g/dL (33.0-37.0); Mean Corpuscular Hgb 28.6 pg (27.0-31.0); Mean Platelet Volume 8.5 fL (7.4-10.4); Nucleated Red Blood Cells % 0 % (-); Platelet Count 349 10^3/uL (130-400); Red Blood Cell Count 3.29 10^6/uL (4.70-6.10); Red Cell Dist. Width 15.8 % (11.5-14.5); White Blood Cell Count 6.5 10^3/uL (4.8-10.8)
[2024-04-13 13:11] LABS: ALT (SGPT) 22 U/L (0-50); AST (SGOT) 31 U/L (17-59); Alkaline Phosphatase 82 U/L (38-126); Blood Urea Nitrogen 42 mg/dl (9-20); Calcium 9.5 mg/dl (8.4-10.2); Carbon Dioxide 25 mmol/L (22-30); Chloride 109 mmol/L (98-107); Glucose 154 mg/dl (70-99); INR 1.19; PT 14.9 Sec (11.4-14.6); Sodium 143 mmol/L (135-145); Total Bilirubin 0.4 mg/dl (0.2-1.3); Total Protein 6.6 g/dl (6.3-8.2); eGFR 36.43
[2024-04-13 13:12] LABS: APTT 33.2 Sec (23.4-35.0)
[2024-04-13 13:19] VITALS: BMI 21.3
[2024-04-13 13:24] VITALS: BP 129/67
--- NOTE | 2024-04-13 13:33 | ED.GENMED ---
History of Present Illness
General
Chief Complaint: Rectal Bleeding
Source: patient and records
Exam Limitations: none
Time Seen by Provider: 04/13/24 12:50
Nursing documentation reviewed up to this point in time: agreed with
History of Present Illness
History of Present Illness:
83-year-old male presents the emergency department due to rectal bleeding. He takes Eliquis for A-fib. This began last night. Recent hospitalization for similar. He called GI today and they told him to come to the ED.,
Past History
Past History
ED Past Medical History: Arrthythmia (Atrial fibrillation), CVA, GERD, HTN, NIDDM, Renal failure, Psychiatric (Depression) and Other (Gout)
ED Past Surgical History: Urological (Prostatectomy) and Other (jaw surgery)
Social History
Tobacco: Former smoker
Alcohol: Occasional
Drug: None
Personal:
Living: with family
Employment: Retired
Family History
Family History: Other
Review of Systems
Review of Systems
Allergies reviewed?: Yes
All Other Systems: Not applicable
Constitutional: Reports no symptoms
EENT: Reports no symptoms
Respiratory: Reports no symptoms
Cardiac: Reports no symptoms
ABD/GI: Reports bloody stools
: Reports no symptoms
Musculoskeletal: Reports no symptoms
Skin: Reports no symptoms
Neurological: Reports no symptoms
Endocrine: Reports no symptoms
Hematologic/Lymphatic: Reports bleeding
Psychiatric: Reports no symptoms
Phy Exam
Physical Exam
Physical Exam:
Physical Exam
General: Afebrile
Neck: supple. no meningeal signs. normal posterior pharynx
Heart: s1/s2 regular rate and rhythm, no murmur. equal radial
pulses.
HEENT: Pupils equal round reactive to light, EOMI
Lungs: no acute respiratory distress. clear bilaterally
Abdomen: normal bowel sounds. not tender. no CVAT, rectal exam dark red blood
Neuro: alert and oriented. no focal neurological deficits cranial nerves II through XII intact
Skin: no rash
Psychiatric: well kept. interactive and cooperative
Extremities: no edema. no calf tenderness. negative homans. good distal pulses
Course
Orders/Labs/Results
Orders:
Orders
04/13/24 12:46
Type+Screen Urgent
Complete Blood Count/With Diff Urgent
Comprehensive Metabolic Panel Urgent
PTT Urgent
Prothrombin Time Urgent
Abnormal Lab Results
04/13/24
12:46
RBC 3.29 L 10^6/uL
(4.70-6.10)
Hgb 9.4 L g/dL
(13.0-18.0)
Hct 28.3 L %
(39.0-52.0)
RDW 15.8 H %
(11.5-14.5)
PT 14.9 H Sec
(11.4-14.6)
Chloride 109 H mmol/L
(98-107)
BUN 42 H mg/dl
(9-20)
Creatinine 1.8 H mg/dL
(0.7-1.3)
Glucose 154 H mg/dl
(70-99)
04/13/24 12:46
04/13/24 12:46
Vital Signs
Initial and Last Documented VS:
Initial Vital Signs
Temp Pulse Resp BP Pulse Ox
98.7 F 68 16 125/63 100
04/13/24 12:28 04/13/24 12:28 04/13/24 12:28 04/13/24 12:28 04/13/24 12:28
Last Documented Vital Signs
Temp Pulse Resp BP Pulse Ox
98.2 F 64 16 118/59 98
04/13/24 15:25 04/13/24 15:25 04/13/24 15:25 04/13/24 15:25 04/13/24 15:25
MDM/Problems Addressed
Differential Diagnosis Includes:
GI bleed
MDM/Problems Addressed:
83-year-old male with GI bleed. Vital signs stable at this time. Seen by Dr. Hogan, recommends dc.
Chronic conditions affecting care: Arrhythmia
Acute Exacerbation and/or Progression of Chronic Illness: Arrhythmia
*Pulse Oximetry
Patient hypoxic: no
*EKG
Interpreted by ED Provider?: NA
*Critical Care Note
Total Time (30-74mins, 75-104mins- exclusive of procedures): Not Applicable
Data Reviewed
Review of Other/Old Records Reveals: Progress Notes (Recent admission for similar, where blood transfusion of 2 units was given., Discharged with on 04/10/2024)
Source: records
Prescriptions/Medications Considered But Not Given:
Blood transfusion not indicated at this time.
Patient Management
Social determinants of health affecting care: Living situation
Discussion with other providers: Logging Assistant (GI Dr. Hogan rec d/c)
Escalation/DeEscalation of care consider admission/obs:
Admit not indicated
ED Attending Note
-
Portions of this chart may have been created with voice recognition software.� Occasional wrong word or��sound alike� substitutions may have occurred due to the inherent limitations of voice recognition software.
Discharge Plan
Departure
Patient Disposition: Home (Routine Discharge)
Date of Disposition: 04/13/24
Time of Disposition: 14:17
Patient with high blood pressure during this ER visit?: Yes
Condition: Fair
Discharge Problem:
Hemorrhage of anus and rectum
Instructions: Bloody Stools, Adult (DC), BLOOD PRESSURE
Prescriptions:
New
hydrocortisone 1 % cream with perineal applicator
1 applic MN DAILY 14 Days Qty: 28.4 0RF
No Action
allopurinol 100 mg Tablet
100 mg PO DAILY
metformin 1,000 mg Tablet
1,000 mg PO QPM
amlodipine 10 mg Tablet
10 mg PO QPM
losartan 50 mg Tablet
75 mg PO DAILY
Eliquis 5 mg Tablet
5 mg PO BID
Unknown Eye Drops
1 drp BOTH EYES DAILYPRN PRN (Reason: dry eyes)
Patient Comments:
04/13/24, OTC eye drops per pt.
aspirin 81 mg tablet,delayed release (DR/EC)
81 mg PO DAILY
polyethylene glycol 3350 [Miralax] 17 gram Powder In Packet
17 g PO DAILYPRN PRN (Reason: constipation)
Referrals:
Justice Hogan MD [Active] - Call in 1-3 days for appt
Jaycee Deng MD [Family Provider] -
Activity Restrictions/Additional Instructions:
Take 1 scoop miralax daily for 1 week
Interventions
Interventions:
*Risk Screen - Suicide Last Done: 04/13/24 13:28
*General Assessment Last Done: 04/13/24 12:28
*Neglect/Abuse Screening Last Done: 04/13/24 13:28
ED- Fall Risk Assessment Last Done: 04/13/24 13:30
*ED COVID-19 Vaccine History Last Done: 04/13/24 12:28
*Nursing Disposition Last Done: 04/13/24 15:25
WH-Mxtkao-Ahygncgpzc Assessment Last Done: 04/13/24 13:30
ED- Cardiac Assessment Last Done: 04/13/24 13:30
ED- Pulmonary Assessment Last Done: 04/13/24 13:30
Discharge Date and Time
Print Language: CZECH
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
--- NOTE | 2024-04-13 15:02 | CON.GI ---
Addendum entered and electronically signed by Justice Hogan MD 04/13/24 15:36:
I saw and examined the patient.
The LAND ACQUISITION MANAGER or PA's note was reviewed and I agree with the note.
Comment: I saw and examined the patient.
The LAND ACQUISITION MANAGER or PA's note was reviewed and I agree with the note.
Comment: 83yo male recently admitted for possible post polypectomy bleeding and discharged 4 days ago. Passed first BM today and it was blood tinged. During his admission, Hgb dropped to 7.5 and he was transfused 2 units PRBC with rise in Hgb to
9.5. Hgb now is 9.4. He had original EGD/colonoscopy 03/29 as outpt and found to have 10mm adenoma in ascending colon that bled after cold snare and required clipping, large polypoid lesion in proximal transverse colon that was biopsied and
tattooed, and a prominent fold at a prior tattoo site in descending colon that was serrated lesion. Plan was to refer to Dr Lyle for consideration of endoscopic removal. Rectal exam reveals red blood and hemorrhoids.
REC:
He appears stable and may be passing residual blood from recent admission
Hgb stable
Told him to hold Eliquis today and resume tomorrow if bleeding subsides
Use hydrocoritsone suppository to treat hemorrhoids in case they are contributing to bleed
Use miralax to avoid constipation
Return to hospital if ongoing bleeding
Needs OP colonoscopy to attempt removal of large polypoid lesion in R colon
Original Note:
Consultation
-
Date/Time Consultation Requested: 04/13/24 1430
Date/Time Consultation Performed: 04/13/24 1445
Requesting Provider: MARK Villeda
Performing Provider: MARK Hirsch, Justice Hogan MD
Reason for Consultation: rectal bleeding
Medical History
Chief Complaint / HPI
Chief Complaint: rectal bleeding
History of Present Illness:
83 y/o male with hx of afib on Eliquis ,DM, CVA, HTN with recent GI procedures 03/29 EGD with med HH, schatzki's ring, gastritis and colonoscopy with 10 mm polyp in the ascending colon clip placed, TA, polypoid lesion proximal TC/distal ascending
tattoo placed distally- TA, prior tattoo seen Descending colon with abnormality fold vs polyp bx SS lesion and internal hemorrhoids. He returned to hospital 04/07 to 04/10 with concern for post polypectomy bleeding and shortness of breath with
symptomatic anemia with hbg drop to 7.5. Pt was transfused 2 units with hbg 9.5 on discharge 04/10. He has not stools for 3 days then noted last PM with brown stool with red blood around stool and sent back to ER. On return noted with hbg 9.4
without dizziness, shortness of breath or lightheadedness or other GI complaints.
Past Medical History
Past Medical History: Other (Atrial fibrillation, on eliquis CVA, GERD, essential HTN, NIDDM, Renal failure, Depression Gout Prostatectomy jaw surgery TIA ,colon polyp with recent noted procedure as able )
Social History
Tobacco: Former Smoker
Alcohol: Occasional
Personal:
Living: With Family
Employment: Retired
Family History
Family History: Reviewed & Not Pertinent
Allergies / Home Medications
Allergy/AdvReac Type Severity Reaction Status Date / Time
No Known Allergies Allergy Verified 04/13/24 12:31
�Medication �Instructions �Recorded
allopurinol 100 mg tablet 100 mg PO DAILY Gout 03/15/23
metformin 1,000 mg tablet 1,000 mg PO QPM Diabetes 03/15/23
amlodipine 10 mg tablet 10 mg PO QPM Blood Pressure 04/02/24
Unknown Eye Drops 1 drp BOTH EYES DAILYPRN PRN dry 04/07/24
eyes
apixaban 5 mg tablet (Eliquis) 5 mg PO BID Blood Clot 04/07/24
Prevention/Tx
losartan 50 mg tablet 75 mg PO DAILY Blood Pressure 04/07/24
aspirin 81 mg tablet,delayed 81 mg PO DAILY Blood Clot 04/08/24
release Prevention/Tx
polyethylene glycol 3350 17 gram 17 g PO DAILYPRN PRN constipation 04/13/24
oral powder packet (Miralax)
Review of Systems
-
History Source: Patient
EENT: Reports No Symptoms
Respiratory: Reports No Symptoms
Cardiac: Reports No Symptoms
Abdomen/GI: Reports Bloody Stools
: Reports No Symptoms
Musculoskeletal: Reports No Symptoms
Skin: Reports No Symptoms
Neurological: Reports No Symptoms
Endocrine: Reports No Symptoms
Hematologic/Lymphatic: Reports Bleeding
Vital Signs
Temp Pulse Resp BP Pulse Ox
98.7 F 71 22 129/67 100
04/13/24 12:28 04/13/24 13:24 04/13/24 13:24 04/13/24 13:24 04/13/24 13:24
Physical Exam
Exam
General: Well Developed, Well Nourished and No Apparent Distress
HEENT: Normocephalic and Anicteric
Respiratory: Clear
Cardiac: Regular Rhythm
GI: Soft, Non Tender and Non Distended
Rectal: Other (per Dr. Hogan, red blood + hemorrhoids )
Skin: Warm and Dry
Neuro: Awake, Alert and AO x 3
Psych: Calm
Results
WBC 6.5 10^3/uL (4.8-10.8) 04/13/24 12:46
Hgb 9.4 g/dL (13.0-18.0) L 04/13/24 12:46
Hct 28.3 % (39.0-52.0) L 04/13/24 12:46
MCV 86.0 fL (80.0-94.0) 04/13/24 12:46
Plt Count 349 10^3/uL (130-400) 04/13/24 12:46
Absolute Neuts (auto) 4.2 10^3/uL (1.4-6.5) 04/13/24 12:46
PT 14.9 Sec (11.4-14.6) H 04/13/24 12:46
INR 1.19 04/13/24 12:46
APTT 33.2 Sec (23.4-35.0) 04/13/24 12:46
Sodium 143 mmol/L (135-145) 04/13/24 12:46
Potassium 4.0 mmol/L (3.5-5.1) 04/13/24 12:46
Chloride 109 mmol/L (98-107) H 04/13/24 12:46
Carbon Dioxide 25 mmol/L (22-30) 04/13/24 12:46
BUN 42 mg/dl (9-20) H 04/13/24 12:46
Creatinine 1.8 mg/dL (0.7-1.3) H 04/13/24 12:46
Calcium 9.5 mg/dl (8.4-10.2) 04/13/24 12:46
Total Bilirubin 0.4 mg/dl (0.2-1.3) 04/13/24 12:46
AST 31 U/L (17-59) 04/13/24 12:46
ALT 22 U/L (0-50) 04/13/24 12:46
Alkaline Phosphatase 82 U/L (38-126) 04/13/24 12:46
Assessment / Plan
-
83 y/o male with hx of afib on Eliquis ,DM, CVA, HTN with recent GI procedures 03/29 EGD with med HH, schatzki's ring, gastritis and colonoscopy with 10 mm polyp in the ascending colon clip placed, TA, polypoid lesion proximal TC/distal ascending
tattoo placed distally TC, prior tattoo seen Descending colon with abnormality fold vs polyp bx SS lesion and internal hemorrhoids. He returned to hospital 04/07 to 04/10 with concern for post polypectomy bleeding and shortness of breath with
symptomatic anemia with hbg drop to 7.5. Pt was transfused 2 units with hbg 9.5 on discharge 04/10. He has not stools for 3 days then noted last PM with brown stool with red blood around stool and sent back to ER. On return noted with hbg 9.4
without dizziness, shortness of breath or lightheadedness or other GI complaints.
-rectal bleeding
-hx recent colonoscopy with polyp resection 10mm AC polyp TA, polypoid lesion distal TC/AC with tattoo placed, prior tattoo site with abnormal fold with SS lesion, IH
-recent admit with post polypectomy bleed 04/07-04/10
-anemia
-Afib on Eliquis
-hx CVA
-DM
PLAN:
etiology of bleeding related to hemorrhoids as no for 3 days then stool with blood noted, post- polypectomy bleeding vs other
hbg stable 9.4 without dizziness, or shortness of breath
plan to treat hemorrhoids with Anusol, add miralax daily
hold Eliquis 1 dose tonight and resume in AM
call GI if bleeding persists
due follow up with Dr. Lyle for repeat colonoscopy
ok for discharge from ER
reviewed with Dr. Hall in ER
-
-
Thank you for consultation and allowing me to participate in the patient's care. Please call the chief cardiopulmonary technologist GI physician during the after hours with any questions or concerns.
[2024-04-13 15:25] VITALS: BP 118/59
== END 2024-04-13 15:25 | disposition home or self-care (01) ==
LOC: EMR 12:26
PROVIDERS: EMERGENCY PHYSICIAN Emergency Medicine; FAMILY PHYSICIAN Internal Medicine; OTHER PHYSICIAN Specialist
DX: K62.5 Hemorrhage of anus and rectum (principal); I10 Essential (primary) hypertension; I48.91 Unspecified atrial fibrillation; Z79.01 Long term (current) use of anticoagulants; Z87.891 Personal history of nicotine dependence
CPT/HCPCS: 99283; 80053; 85025; 85610; 85730; 86850; 86900; 86901

== ENCOUNTER 2024-04-16 13:43 | Outpatient (RCR) | payer OTHER, SELFPAY ==
[2024-04-02 13:50] VITALS: BP 122/52
[2024-04-02] MEDS: VENOFER 110 MG IV (14:14)
[2024-04-02 15:30] VITALS: BP 120/50
[2024-04-16 14:00] VITALS: BP 115/49
[2024-04-16] MEDS: VENOFER 110 MG IV (14:07)
[2024-04-16 15:15] VITALS: BP 117/51
== END 2024-04-18 13:59 | disposition home or self-care (01) ==
LOC: OID 13:43
PROVIDERS: ATTENDING PHYSICIAN Nurse Practitioner; FAMILY PHYSICIAN Internal Medicine
DX: D64.9 Anemia, unspecified (principal); K92.1 Melena; R06.09 Other forms of dyspnea; I48.0 Paroxysmal atrial fibrillation; J06.9 Acute upper respiratory infection, unspecified
CPT/HCPCS: 96365; J1756

== ENCOUNTER 2024-05-10 13:45 | Outpatient (RCR) | payer OTHER, SELFPAY ==
[2024-04-23] MEDS: VENOFER 110 MG IV (13:50)
[2024-04-23 13:54] VITALS: BP 118/50
[2024-04-23 15:05] VITALS: BP 115/69
[2024-04-30] MEDS: VENOFER 110 MG IV (14:08)
[2024-04-30 14:10] VITALS: BP 128/54
[2024-04-30 15:15] VITALS: BP 120/53
[2024-05-10 13:45] VITALS: BP 128/68
[2024-05-10] MEDS: VENOFER 110 MG IV (14:04)
[2024-05-10 15:21] VITALS: BP 126/63
== END 2024-05-23 23:59 | disposition home or self-care (01) ==
LOC: OID 13:45
PROVIDERS: ATTENDING PHYSICIAN Nurse Practitioner; FAMILY PHYSICIAN Internal Medicine
DX: D64.9 Anemia, unspecified (principal); K92.1 Melena; R06.09 Other forms of dyspnea; I48.0 Paroxysmal atrial fibrillation; J06.9 Acute upper respiratory infection, unspecified
CPT/HCPCS: 96365; J1756

== ENCOUNTER 2024-05-24 06:15 | Day surgery (SDC) | payer OTHER, SELFPAY ==
[2024-05-24 07:13] VITALS: BMI 21.2
[2024-05-24 07:14] VITALS: BP 125/73; BMI 21.2
[2024-05-24 07:25] LABS: Glucose - Point of Care 101 mg/dl (70-99)
[2024-05-24 09:50] VITALS: BP 107/58
[2024-05-24 10:05] VITALS: BP 108/56
[2024-05-24 10:20] VITALS: BP 120/55
[2024-05-24 10:30] VITALS: BP 118/60
== END 2024-05-24 10:50 | disposition home or self-care (01) ==
LOC: GI 06:15
PROVIDERS: ATTENDING PHYSICIAN Internal Medicine Gastroenterology
DX: D12.2 Benign neoplasm of ascending colon (principal); K64.0 First degree hemorrhoids; T18.4XXA Foreign body in colon, initial encounter; W44.G9XA Other non-organic objects entering into or through a natural orifice, initial encounter; D12.3 Benign neoplasm of transverse colon; K63.5 Polyp of colon; K57.30 Diverticulosis of large intestine without perforation or abscess without bleeding
CPT/HCPCS: 45390; 45385; 45381; 88305; 82962

== ENCOUNTER 2024-11-30 06:14 | Day surgery (SDC) | payer OTHER, SELFPAY ==
[2024-11-30 07:21] LABS: Glucose - Point of Care 103 mg/dl (70-99)
[2024-11-30 07:25] VITALS: BP 137/66
[2024-11-30 07:27] VITALS: BMI 22.7
[2024-11-30 09:38] VITALS: BP 121/59
[2024-11-30 09:45] VITALS: BP 125/57
[2024-11-30 10:00] VITALS: BP 126/64
[2024-11-30 10:03] LABS: Glucose - Point of Care 93 mg/dl (70-99)
== END 2024-11-30 10:40 | disposition home or self-care (01) ==
LOC: SDS 06:14
PROVIDERS: ATTENDING PHYSICIAN Internal Medicine Gastroenterology
DX: K63.5 Polyp of colon (principal); K64.0 First degree hemorrhoids; T18.4XXA Foreign body in colon, initial encounter; W44.8XXA Other foreign body entering into or through a natural orifice, initial encounter; Z86.0101 Personal history of adenomatous and serrated colon polyps; Z98.890 Other specified postprocedural states
CPT/HCPCS: 45385; 45380; 45379; 88305; 82962

== ENCOUNTER 2025-09-30 06:50 | Day surgery (SDC) | payer OTHER, SELFPAY ==
[2025-09-30 07:42] LABS: Glucose - Point of Care 100 mg/dl (70-99)
== END 2025-09-30 10:00 | disposition home or self-care (01) ==
LOC: CATH 06:50
PROVIDERS: ATTENDING PHYSICIAN Internal Medicine Cardiovascular Disease; FAMILY PHYSICIAN Internal Medicine
DX: I48.91 Unspecified atrial fibrillation (principal); I34.0 Nonrheumatic mitral (valve) insufficiency; Z79.82 Long term (current) use of aspirin; Z79.899 Other long term (current) drug therapy; Z79.84 Long term (current) use of oral hypoglycemic drugs; I10 Essential (primary) hypertension; E11.9 Type 2 diabetes mellitus without complications; Z86.73 Personal history of transient ischemic attack (TIA), and cerebral infarction without residual deficits
CPT/HCPCS: 93312; 93320; 93325; 82962